=== PATIENT | female | born 1990 | race Caucasian/White ===

== ENCOUNTER 2021-07-22 17:52 | Observation (INO) | payer MEDICAID, OTHER ==
[~2021-07-22] VITALS: Ht 157.5 cm; Wt 72.1 kg
[~2021-07-22 17:52] MED LIST: PREN1TAB49
[2021-07-22] MEDS ORDERED: PREN-55 MT (18:32)
== END 2021-07-22 22:00 | disposition home or self-care (01) ==
LOC: 8 EST LDRP 17:52
PROVIDERS: ADMIT Obstetrics & Gynecology; ATTEND Obstetrics & Gynecology
DX: O42.913 Preterm premature rupture of membranes, unspecified as to length of time between rupture and onset of labor, third trimester (principal); Z3A.34 34 weeks gestation of pregnancy
CPT/HCPCS: 59025; 76815; 76818; G0378; 99281; G0379

== ENCOUNTER 2022-08-11 10:16 | Emergency (ER) | payer MEDICAID, OTHER ==
[~2022-08-11] VITALS: Ht 172.7 cm; Wt 68.0 kg
[~2022-08-11 10:16] MED LIST changes: +PREN-55 MT; -PREN1TAB49
[2022-08-11] MEDS ORDERED: ACETAMINOPHEN 325MG TABLET PO ONE (10:30)
[2022-08-11] MEDS ORDERED: ONDANSETRON HCL 4MG/2ML INJ IV ONE (11:00)
[2022-08-11] MEDS ORDERED: SODIUM CHLORIDE 0.9% 1,000 ML IV ONE (12:00)
[2022-08-11 12:19] LABS: BASOPHILS % 0.2 % (0.0-2.0); EOSINOPHILS % 0.6 % (0.0-5.0); HEMATOCRIT. 33.9 % (36.0-48.0); HEMOGLOBIN. 11.7 g/dL (12.0-16.0); LYMPHOCYTES % 14.8 % (20.0-50.0); MEAN CORPUSCULAR HEMOGLOBIN 29.3 pg (28.0-32.0); MEAN CORPUSCULAR VOLUME 85.2 fL (81.0-99.0); MEAN PLATELET VOLUME 8.4 fl (7.4-10.4); MONOCYTES % 3.5 % (2.0-8.0); NEUTROPHILS % 80.9 % (40.0-76.0); PLATELET 319 x1000/uL (130-400); RED BLOOD CELL COUNT 3.97 mill/uL (4.2-5.4)
[2022-08-11 12:41] LABS: CHLORIDE 109 mEq/L (98-107)
[2022-08-11 12:50] LABS: CLARITY URINE TURBID (CLEAR); COLOR URINE DARK YELLOW (YELLOW); KETONES URINE 3+ (NEGATIVE); LEUKOCYTE ESTERASE URINE 2+ (NEGATIVE); NITRITE URINE NEGATIVE (NEGATIVE); OCCULT BLOOD URINE TRACE (NEGATIVE); PROTEIN URINE 2+ (NEGATIVE); SPECIFIC GRAVITY URINE 1.028 (1.005-1.030)
[2022-08-11] MEDS ORDERED: TOPUD PO (12:51)
[2022-08-11 13:03] LABS: B-HCG QUANTITATIVE 146467 mIU/mL (<3)
[2022-08-11 13:19] VITALS: BP 118/43
[2022-08-11] MEDS ORDERED: NITR100C PO (13:39)
== END 2022-08-11 14:43 | disposition home or self-care (01) ==
LOC: ER 10:16
DX: O20.0 Threatened abortion (principal); Z3A.01 Less than 8 weeks gestation of pregnancy; O23.41 Unspecified infection of urinary tract in pregnancy, first trimester; N39.0 Urinary tract infection, site not specified
CPT/HCPCS: 36415; 76801; 80053; 81003; 81025; 84702; 85025; 87086; 96361; 96374; 99285; J2405; J7030; Z7610